=== PATIENT | male | born 2000 | race Caucasian/White ===

== ENCOUNTER → 2021-06-19 16:41 | Outpatient (CLI) | payer OTHER, SELFPAY | PROVIDERS: Visit Provider Physician Assistant Surgical | DX: U07.1 COVID-19 (principal) | CPT/HCPCS: 87635; U0005; U0003 ==

== ENCOUNTER 2023-06-07 14:14 | Emergency (ER) | payer OTHER, SELFPAY ==
[2023-06-07 14:15] VITALS: BP 173/97; PULSE 92; RESP 18; TEMP 36.1; O2SAT 99; BMI 24.6
--- NOTE | 2023-06-07 15:04 | NURSING ---
NO OLD EKGS
--- NOTE | 2023-06-07 15:20 | CM.ED ---
Social Work VISHAL informed by pressure tester operator Alyssa patient was previously assessed by [facility], however, once patient is medically cleared placement will be dependent on if patient has insurance. Registration staff verified patient does have active insurance. Insurance eligibility faxed to [facility] by VISHAL. VISHAL contacted [facility] and spoke with Dee Dee. Dee Dee reports receiving insurance verification and verified his MH assessment has been completed. SW will fax chart once patient is medically cleared so [facility] can make referrals. Plan: refer for psychiatric placement once medically cleared Faye NUÑEZ, ARMAND
[2023-06-07 15:28] LABS: Absolute Lymphocyte Count 2.29 X10^3/uL (0.83-4.51); Absolute Neutrophil Count 1.7 X10^3/uL (2.0-7.7); Basophil# 0.04 X10^3/uL; Basophil% 0.9 % (0-1); Eosinophil# 0.01 X10^3/uL; Eosinophils% 0.2 % (0-5); Hematocrit 43.8 % (40-54); Hemoglobin 15.9 g/dL (13.0-16.5); Lymphocyte # 2.29 X10^3/ul (0.83-4.51); Lymphocyte % 48.7 % (19-41); Mean Corp Hgb Conc 36.3 g/dL (32-36); Mean Corpuscular Hgb 31.4 pg (27.0-32.0); Mean Corpuscular Volume 86.4 fL (80-94); Mean Platelet Vol. 10.7 fl (6.2-12.0); Monocyte# 0.68 X10^3/uL; Monocyte% 14.5 % (0-10); NRBC Flagged by Analyzer 0 % (0-5); Neutrophil # 1.68 X10^3/uL (2.7-7.7); Neutrophil % 35.7 % (47-70); POSITIVE MORPHOLOGY YES; Platelet Count 189 K/mm3 (150-450); RBC Distribution Width SD 37.5 fl (35.1-43.9); Red Blood Count 5.07 M/mm3 (4.6-6.2); White Blood Count 4.7 K/mm3 (4.4-11.0)
[2023-06-07 15:35] LABS: Differential Indicated SCAN CRITERIA MET
[2023-06-07 15:51] LABS: Alcohol, Blood (Medical)-Serum < 3.0 mg/dL
[2023-06-07 15:54] LABS: Anion Gap 11 (5-15); BUN 11 mg/dL (7-18); BUN/Creat Ratio 9.6 RATIO (10-20); Calcium,Total 9.3 mg/dL (8.5-10.1); Chloride 105 mmol/L (98-107); Creatinine, Serum 1.14 mg/dL (0.70-1.30); EST Glomerular Filtration Rate 84 mL/min (>60); Est Glom Filt Rate - Afr Amer 101 mL/min (>60); Estimated Creatinine Clearance 119.42 ml/min; Glucose 108 mg/dL (74-106); Potassium 3.5 mmol/L (3.5-5.1); Sodium Level 140 mmol/L (136-145)
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
[2023-06-07 16:29] LABS: Differential Comment SCANNED
[2023-06-07 16:42] LABS: Amphetamine Urine VISTA NEGATIVE (<1000 ng/mL); Barbiturate Urine VISTA NEGATIVE (< 200 ng/mL); Benzodiazepine Urine VISTA NEGATIVE (< 200 ng/mL); Cocaine Urine VISTA NEGATIVE (< 300 ng/mL); Ecstacy Urine VISTA NEGATIVE (< 500 ng/mL); Methadone Urine VISTA NEGATIVE (< 300 ng/mL); PCP Urine VISTA NEGATIVE (< 25 ng/mL); THC Urine VISTA POSITIVE (< 50 ng/mL); Vista UDS pH Range 6
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
--- NOTE | 2023-06-07 18:05 | CM.ED ---
Social Work MD Khan states patient is pink slipped as patient continues to display bizarre behavior. SW contacted [facility] to inquire about update regarding referrals. [facility] staff, Dee Dee, states she plans to contact the following facilities to discuss a referral: [facility], [facility] and [facility]. Plan: referral for psych placement Faye NUÑEZ, ARMAND
[2023-06-07] MEDS: Acetaminophen 325 MG Tablet 650 MG PO (18:58)
[2023-06-07 19:14] VITALS: RESP 15
[2023-06-07 20:00] VITALS: RESP 15
--- NOTE | 2023-06-07 20:02 | ED.RN ---
Pt standing in hallway talking with grandiose stories. Pt asked to go in his room and sit down multiple times. PD and security at bedside. Pt given sandwich, cookies and offered a Gatorade but he declined the Gatorade. Pt trying to speak with every staff member and patient in the hallway, stating how he is suing us for human trafficking. Pt asking for everyone's name as they walk by. Pt has been asked multiples times to go in his room and sit down. PT refuses. Pt stating that he knows all the exits and that he's going to run and you guys will have to catch me. HRO stating outside of the patients room.
[2023-06-07] MEDS: Ziprasidone IM 20 MG/ML VIAL IM (20:29)
--- NOTE | 2023-06-07 20:30 | ED.RN ---
gracedon ordered and given for pt's persistent noncompliance including not allowing vital signs to be done, pt will not stay in his room and is threatening to run out the door
[2023-06-07 21:00] VITALS: RESP 15
[2023-06-07 23:00] VITALS: RESP 15
[2023-06-07 23:42] VITALS: BP 155/90; PULSE 77; RESP 15; O2SAT 99
[2023-06-08 01:19] VITALS: RESP 14
[2023-06-08 02:00] VITALS: RESP 15
--- NOTE | 2023-06-08 07:42 | ED.RN ---
Report given to nurse at [facility]
== END 2023-06-08 07:42 ==
PROVIDERS: Emergency Provider Student in an Organized Health Care Education/Training Program; Visit Provider Student in an Organized Health Care Education/Training Program
DX: F23 Brief psychotic disorder (principal); Z20.822 Contact with and (suspected) exposure to COVID-19; S00.83XD Contusion of other part of head, subsequent encounter; S80.811D Abrasion, right lower leg, subsequent encounter; S80.812D Abrasion, left lower leg, subsequent encounter; V98.8XXD Other specified transport accidents, subsequent encounter
CPT/HCPCS: 80048; 80307; 82077; 85025; 87811; 93005; 96372; 99283; J3486